=== PATIENT | male | born 2000 | race Caucasian/White ===

== ENCOUNTER 2024-06-05 00:43 | Emergency (ER) | payer OTHER ==
[~2024-06-05] VITALS: Ht 188 cm; Wt 92.5 kg
[2024-06-05 00:59] VITALS: BP 133/80
== END 2024-06-05 01:04 | disposition home or self-care (01) ==
LOC: ED 00:43
DX: F19.10 Other psychoactive substance abuse, uncomplicated (principal)
CPT/HCPCS: 99284